=== PATIENT | female | born 1965 | race African-American/Black ===

== ENCOUNTER 2019-11-04 17:57 | Emergency (ER) | payer OTHER, MEDICARE ==
[~2019-11-04] VITALS: Ht 162.6 cm; Wt 74.4 kg
[2019-11-04 20:08] VITALS: BP 140/86
[2019-11-04] MEDS ORDERED: METHOCARBAMOL 500 MG TAB PO ONE (20:30)
[2019-11-04] MEDS ORDERED: IBUPROFEN 800 MG TAB PO ONE (20:30)
== END 2019-11-04 21:33 | disposition home or self-care (01) ==
LOC: ER 18:17
DX: M62.838 Other muscle spasm (principal); M54.5 Low back pain; M79.7 Fibromyalgia
CPT/HCPCS: 72100